=== PATIENT | female | born 1965 | race African-American/Black ===

== ENCOUNTER 2020-06-13 07:47 | Outpatient (CLI) | payer OTHER, SELFPAY ==
--- NOTE | 2020-06-13 07:51 | ECG_ITS ---
Measurements Intervals [place] Rate: 70 P: 57 MN: 151 QRS: -31 QRSD: 93 T: 221 QT: 433 QTc: 470 Interpretive Statements SINUS RHYTHM LEFT AXIS DEVIATION LEFT VENTRICULAR HYPERTROPHY AND ST-T CHANGE POOR R WAVE PROGRESSION, ANTERIOR LEADS ST-T WAVE ABNORMALITY IN ANTEROLATERAL LEADS- CONSIDER ISCHEMIA ABNORMAL ECG Electronically Signed On 06-13-2020 8:49:30 CDT by Juan Lopez D.O.
[2020-06-13 08:18] LABS: Anion Gap 7 mmol/L (8-16); Blood Urea Nitrogen 12 mg/dL (7-17); Carbon Dioxide 33 mmol/L (22-30); Chloride 91 mmol/L (98-107); Estimated Glomerular Filt Rate > 60; Glucose 395 mg/dL (65-105); Sodium 131 mmol/L (137-145)
== END 2020-06-13 07:48 | disposition home or self-care (01) ==
PROVIDERS: Anesthesiology; Visit Provider Obstetrics & Gynecology
DX: Z01.818 Encounter for other preprocedural examination (principal); E11.9 Type 2 diabetes mellitus without complications; I10 Essential (primary) hypertension; R94.31 Abnormal electrocardiogram [ECG] [EKG]
CPT/HCPCS: 36415; 80048; 93005

== ENCOUNTER 2020-06-18 00:36 | Outpatient (CLI) | payer OTHER, SELFPAY ==
[2020-06-18 19:34] LABS: SARS-CoV-2 RNA PCR Negative
== END 2020-06-18 00:37 | disposition home or self-care (01) ==
LOC: ANHCOVIDDT 00:36
PROVIDERS: Visit Provider Obstetrics & Gynecology
DX: Z01.812 Encounter for preprocedural laboratory examination (principal); Z11.59 Encounter for screening for other viral diseases
CPT/HCPCS: 87635; C9803; U0003

== ENCOUNTER 2020-06-20 02:19 | Day surgery (SDC) | payer OTHER, SELFPAY ==
[2020-06-08 09:18] VITALS: BMI 49.1
[2020-06-20] VITALS (8 sets, daily range): BP systolic 140–165; BP diastolic 81–103; PULSE 43–58; RESP 16–20; TEMP 36.1–36.8; O2SAT 91–100
--- NOTE | 2020-06-20 06:51 | WPDANESEPPF ---
Anes - Initial Pre Proc Eval Procedure: Operation Date: 06/20/20 07:30 Proposed Procedures p Hysteroscopy, Dilation and Curettage - Brice Cameron MD Date/Time: 06/20/20 06:51 Surgeon: Brice Cameron MD Pre Op Diagnosis: Postmenopausal Bleeding Patient Data Age: 54 Gender: F Height: 5 ft Weight: 114 kg Allergies Allergy/AdvReac Type Severity Reaction Status Date / Time lisinopril AdvReac Mild coughing Verified 06/08/20 09:11 Home Medications Medication Instructions Recorded Confirmed Type allopurinol 100 mg PO DAILY 06/08/20 06/08/20 History aripiprazole 15 mg PO DAILY 06/08/20 06/08/20 History aspirin [Aspir-81] 81 mg PO DAILY 06/08/20 06/08/20 History atenolol 100 mg PO DAILY 06/08/20 06/08/20 History bupropion HCl 150 mg PO DAILY 06/08/20 06/08/20 History famotidine 20 mg PO BID 06/08/20 06/08/20 History gabapentin 1,200 mg PO TID 06/08/20 06/08/20 History hydrochlorothiazide 25 mg PO DAILY 06/08/20 06/08/20 History losartan 100 mg PO DAILY 06/08/20 06/08/20 History metformin 500 mg PO DAILY 06/08/20 06/08/20 History methimazole 10 mg PO DAILY 06/08/20 06/08/20 History Patient hx anesthesia problems: none Family hx anesthesia problems: none [facility] Past Medical History Medical History Depression Diabetes Hypertension Morbid obesity MARIO (obstructive sleep apnea) Social History Social History Smoking status: Never smoker Spiritual care concerns: No Anes - Eval Final PreProcedure Day of Procedure 06/20/20 06:51 Patient weight: morbidly obese Heart: regular rate and rhythm Lungs: clear to auscultation Airway: Mallampati scale class III Neurological: alert and oriented Last oral intake: >/= 8 hours ASA classification: III Emergent: no Anesthetic plan: proceed Anesthesia type and monitoring: general GIVS and standard monitoring Informed Consent: The patient's anesthetic plan and its attendant risks and benefits were discussed with the patient/family/POA. Questions were solicited and answers provided to the satisfaction of the patient/family/POA.
[2020-06-20] MEDS: ACETAMINOPHEN 500 MG TABLET 1000 MG PO (07:00)
[2020-06-20] MEDS: LACTATED RINGERS 1,000 ML 30 ML IV CONT (07:02)
[2020-06-20 07:05] LABS: Glucose Point of Care 391 (65-105)
--- NOTE | 2020-06-20 07:05 | WPDHPUPDATE1 ---
History and Physical Update Update Date/Time: 06/20/20 07:05 History and Physical has been reviewed, including an updated exam of the patient. There are NO changes in the patient's condition. Risks, benefits, and alternatives have been discussed and questions answered. Patient agrees to proceed with procedure.
[2020-06-20 07:11] LABS: Sodium 131 mmol/L (137-145)
[2020-06-20] MEDS: INSULIN HUMAN REGULAR (*BKC) 100 UNITS/ML 12 UNITS SUB-Q (07:13)
--- NOTE | 2020-06-20 08:01 | SUR.OPER ---
700ml ns in, 600ml ns out. aware
[2020-06-20 08:16] LABS: Glucose Point of Care 369 (65-105)
--- NOTE | 2020-06-20 08:16 | PM.PROC ---
Procedure Note - Detailed Date of procedure: 06/20/20 Pre-op diagnosis: Postmenopausal Bleeding Post-op diagnosis: same Procedure performed: Hysteroscopy D&C Description of procedure: The patient was taken the operating room. She was prepped and draped in the dorsal lithotomy position after induction of mac anesthesia. A speculum was placed in the vagina. The cervix grasped with a tenaculum. The cervix was injected at 3 and 9:00 a.m. with 1% lidocaine. Cervix was dilated up to 1 cm. The hysteroscope was inserted the intrauterine cavity and the above findings were noted. A medium-size curette was then used to curettage all surfaces within the endometrial cavity. The endometrial curettings were collected on a Telfa. There were submitted to the pathology department. Hysteroscope was reinserted the intrauterine cavity to re-examine the endometrial surfaces. The hysteroscope was withdrawn. The tenaculum was removed. The speculum was removed. The patient tolerated the procedure well. She was taken recovery room stable condition. Sponge lap needle counts were correct x2. Anesthesia: MAC Surgeon: Brice Cameron MD Estimated blood loss (mL): 75 Drains: No Packing: No Pathology: yes Complications: No immediate complications Condition: stable Disposition: PACU Findings: There was some thickening of the endometrium. There was normal appearing vulva vagina and cervix.
[2020-06-20] MEDS: INSULIN HUMAN REGULAR (*BKC) 100 UNITS/ML 8 UNITS SUB-Q (08:34)
[2020-06-20 09:27] LABS: Glucose Point of Care 321 (65-105)
--- NOTE | 2020-06-20 10:19 | SUR.PHASEII ---
0940 PT DRESSED; WAITING FOR RIDE.
--- NOTE | 2020-06-20 10:19 | SUR.PHASEII ---
3110 DR. CERDA CALLED RE: BLOOD SUGAR [id number]; DR. CERDA AWARE, NO INTERVENTIONS ORDERED. PT INSTRUCTED TO FOLLOW-UP WITH PMD RE: DIABETES.
== END 2020-06-20 10:50 | disposition home or self-care (01) ==
PROVIDERS: Anesthesiology; Visit Provider Obstetrics & Gynecology
PROC: 0U5B8ZZ Destruction of Endometrium, Via Natural or Artificial Opening Endoscopic (ICD-10-PCS; CPT 58563; principal; 2020-06-20 07:30)
DX: N95.0 Postmenopausal bleeding (principal); N88.8 Other specified noninflammatory disorders of cervix uteri; E11.9 Type 2 diabetes mellitus without complications; I10 Essential (primary) hypertension; E05.00 Thyrotoxicosis with diffuse goiter without thyrotoxic crisis or storm; F32.9 Major depressive disorder, single episode, unspecified; G47.33 Obstructive sleep apnea (adult) (pediatric); Z79.84 Long term (current) use of oral hypoglycemic drugs; Z79.899 Other long term (current) drug therapy
CPT/HCPCS: 58558; 36415; 84295; 88305; A9270; J1815; J2250; J2405; J2704; J3010; J7030; J7120

== ENCOUNTER 2021-11-16 10:17 | Outpatient (CLI) | payer OTHER, SELFPAY ==
--- NOTE | ~2021-11-16 | MM_ITS ---
EXAMINATION: MM screening [facility] BI w tierra HISTORY: Screening mammogram TECHNIQUE: Craniocaudal and mediolateral oblique 3-D tomosynthesis images were obtained and synthetic 2-D images were generated. CAD analysis was submitted and interpreted. COMPARISON: 10/17/2019 BREAST PARENCHYMAL COMPOSITION: There are scattered areas of fibroglandular density. FINDINGS: There is no evidence of suspicious mass, calcification, or architectural distortion to sugg est malignancy in either breast. There has been no suspicious interval change. IMPRESSION: 1. No mammographic evidence of malignancy. 2. Recommend routine screening mammography in one year. BI-RADS Category 1: Negative Reviewed, dictated and finalized at location A. PROCESSOR
== END 2021-11-16 10:18 | disposition home or self-care (01) ==
LOC: ANHIMG 10:21
PROVIDERS: Visit Provider Obstetrics & Gynecology
DX: Z12.31 Encounter for screening mammogram for malignant neoplasm of breast (principal)
CPT/HCPCS: 77063; 77067

== ENCOUNTER 2021-11-18 09:09 | Outpatient (CLI) | payer OTHER, SELFPAY ==
[2021-11-18 10:21] LABS: Anion Gap 11 mmol/L (8-16); Blood Urea Nitrogen 12 mg/dL (7-17); Calcium 9.5 mg/dL (8.4-10.2); Carbon Dioxide 28 mmol/L (22-30); Chloride 96 mmol/L (98-107); Estimated Glomerular Filt Rate > 60; Glucose 174 mg/dL (65-110); Potassium 4.1 mmol/L (3.4-5.0); Sodium 135 mmol/L (137-145)
== END 2021-11-18 09:10 | disposition home or self-care (01) ==
LOC: ANHSURGERY 09:13
PROVIDERS: Anesthesiology; PCP Internal Medicine; Visit Provider Obstetrics & Gynecology
DX: E11.9 Type 2 diabetes mellitus without complications (principal); Z79.899 Other long term (current) drug therapy
CPT/HCPCS: 36415; 80048

== ENCOUNTER 2021-11-19 01:50 | Day surgery (SDC) | payer OTHER, SELFPAY ==
[2021-11-15 14:02] VITALS: BMI 47.0
--- NOTE | 2021-11-15 14:11 | PC.NURSE ---
Report to the Outpatient Waiting Room, entrance under the green pavilion located off [facility], at time 11:00 on date 11/19/21. OR Time: 1:00. - You will be asked a series of questions to screen for COVID 19 for your protection. - A mask is required within the hospital. - No visitors are allowed at this time. Preoperative COVID Testing Requirements: No COVID Test needed if: (proof is required; if not received patient will have Rapid Test prior to entry) - Patient has received COVID Vaccine at least 14 days prior to procedure date or - Patient has positive COVID test result within last 90 days of surgery date. COVID Test needed if above criteria is not met Patients may have clear liquids (water, carbonated beverages, clear teas, apple juice) until 3 hours prior to surgery (10:00) with a maximum of 20 ounces. - No food from midnight until time of surgery Take the following medications with a SIP of water the morning of surgery: INHALER, ARIPIPRAZOLE, ATENOLOL, DULOXETINE, GABAPENTIN, METHIMAZOLE, 1/2 AM INSULIN DOSE Medications to discontinue per physician: VITAMINS/SUPPLEMENTS Date to take last dose: 11/15/[address] MARES Please no make-up, nail nicaraguan, hairspray, perfume, deodorant, or body powder the day of surgery. No jewelry (including any body piercings) or valuables the day of surgery, leave them at home. Please take a shower or bath the night before, or the morning of, surgery with an antibacterial soap. Wear comfortable, loose fitting clothing. - Jewelry must be removed prior to entering the operating room. Rings and piercings that are not removed may be cut off. - The hospital will not accept responsibility for valuables. - Please leave all valuables, including medications, at home the day of surgery. If you are going home after surgery, a licensed local owner operator truck driver must drive you home. - NO public transportation without another adult. - We recommend that an adult stay with you for 24 hours following discharge. - We also recommend that you do not drive, make important decision, drink alcoholic beverages, or take any drugs that were not prescribed by your health care provider for at least 24 hours after your discharge time. Follow any additional instructions given to you from your surgeon. Telephone instructions given to TRENA FALCON and asked if any additional questions and then verbalized understanding. Patient advised to call surgeon office or pre surgery nurse liaison [phone] if any additional questions.
--- NOTE | 2021-11-18 12:47 | WPDANESEPPF ---
Anes - Initial Pre Proc Eval Procedure: Operation Date: 11/19/21 13:00 Proposed Procedures p Hysteroscopy Dilation and Curettage Endometrial Ablation with Sanna - Brice Cameron MD Date/Time: 11/18/21 12:47 Surgeon: Brice Cameron MD Pre Op Diagnosis: excessive frequent menstruation Patient Data Age: 56 Gender: F Height: 1.57 m Weight: 116.57 kg Allergies Allergy/AdvReac Type Severity Reaction Status Date / Time terbinafine [From Lamisil] Allergy Severe Itching Verified 11/15/21 13:56 lisinopril AdvReac Mild coughing Verified 11/15/21 13:56 Home Medications Medication Instructions Recorded Confirmed Type aripiprazole 15 mg PO DAILY 06/08/20 11/15/21 History aspirin [Aspir-81] 81 mg PO DAILY 06/08/20 11/15/21 History atenolol 100 mg PO DAILY 06/08/20 11/15/21 History famotidine 20 mg PO BID 06/08/20 11/15/21 History gabapentin 1,200 mg PO TID 06/08/20 11/15/21 History hydrochlorothiazide 25 mg PO DAILY 06/08/20 11/15/21 History losartan 100 mg PO DAILY 06/08/20 11/15/21 History metformin 500 mg PO DAILY 06/08/20 11/15/21 History methimazole 10 mg PO DAILY 06/08/20 11/15/21 History albuterol sulfate 1 inh INHALATION Q6H PRN 11/15/21 11/15/21 History atorvastatin 20 mg PO HS 11/15/21 11/15/21 History duloxetine 60 mg PO DAILY 11/15/21 11/15/21 History insulin lispro [Humalog KwikPen 8 unit SUBCUT TIDWM 11/15/21 11/15/21 History Insulin] liraglutide [Victoza 3-Joel] 1.8 mg SUBCUT DAILY 11/15/21 11/15/21 History multivitamin 1 tablet PO DAILY 11/15/21 11/15/21 History omeprazole 40 mg PO DAILY 11/15/21 11/15/21 History ondansetron 4 mg PO DAILY 11/15/21 11/15/21 History phentermine 37.5 mg PO DAILY 11/15/21 11/15/21 History potassium chloride 10 meq PO DAILY 11/15/21 11/15/21 History progesterone micronized 200 mg PO DAILY 11/15/21 11/15/21 History spironolactone 25 mg PO DAILY 11/15/21 11/15/21 History Patient hx anesthesia problems: none Family hx anesthesia problems: none Results Review: All pre-operative results and documents have been reviewed as part of the pre-operative evaluation. [facility] Past Medical History Medical History (System 08/31/20 @ 15:46 by Belkys Verma) Depression Diabetes Hypertension Morbid obesity MARIO (obstructive sleep apnea) Social History Social History (System 08/31/20 @ 15:46 by Belkys Verma) Smoking status: Never smoker Alcohol intake: never Substance use: never Substance use type: does not use Living arrangements: with family Additional living arrangements comments: SON Spiritual care concerns: No Anes - Eval Final PreProcedure Day of Procedure 11/18/21 12:47 Patient weight: morbidly obese Heart: regular rate and rhythm Lungs: clear to auscultation and normal air movement Airway: Mallampati scale class II Neurological: alert and oriented Last oral intake: >/= 8 hours ASA classification: III Emergent: no Anesthetic plan: proceed Anesthesia type and monitoring: general LMA Results Review: All pre-operative results and documents have been reviewed as part of the pre-operative evaluation. Informed Consent: The patient's anesthetic plan and its attendant risks and benefits were discussed with the patient/family/POA. Questions were solicited and answers provided to the satisfaction of the patient/family/POA.
[2021-11-19] VITALS (8 sets, daily range): BP systolic 83–130; BP diastolic 50–84; PULSE 63–73; RESP 14–20; TEMP 36.2–36.6; O2SAT 97–100; BMI 46.4
[2021-11-19] MEDS: ACETAMINOPHEN 500 MG TABLET 1000 MG PO (11:04)
[2021-11-19 11:20] LABS: Glucose Point of Care 141 mg/dl (65-105)
[2021-11-19] MEDS: LACTATED RINGERS 1,000 ML 30 ML IV CONT ×2 (11:32→15:11)
--- NOTE | 2021-11-19 13:16 | WPDHPUPDATE1 ---
History and Physical Update Update Date/Time: 11/19/21 13:16 History and Physical has been reviewed, including an updated exam of the patient. There are NO changes in the patient's condition. Risks, benefits, and alternatives have been discussed and questions answered. Patient agrees to proceed with procedure.
--- NOTE | 2021-11-19 13:41 | W.PM.PROC2 ---
Procedure Note - Detailed Date of Procedure 11/19/21 Pre-op Diagnosis excessive frequent menstruation Post-op Diagnosis same Procedure Performed endometrial ablation with hysteroscopy d&c Surgeon Brice Cameron MD Anesthesia MAC Indications Severe menorrhagia Findings Normal vulva vagina and cervix. Normal endometrium. Description of Procedure The patient was taken to the operating room. She was prepped and draped in the dorsal lithotomy position after induction of mac anesthesia. A speculum was placed in the vagina. Cervix grasped with a tenaculum. The cervix was dilated to about 1 cm. The hysteroscope was inserted. The above findings were noted. Endometrial curettage was performed with a medium-size curette. All surfaces of the endometrium were affected by the curettage. The specimens were collected and sent to pathology. Measurements were taken of the uterus and cervix. The uterine length was then entered into the hand piece of the Sanna device. The device was inserted into the intrauterine cavity. The array of the device was expanded. The balloon cuff was inflated. A good seal was achieved. The energy and safety cycles were initiated and completed. The array was collapsed and the instrument was withdrawn after deflating the balloon cuff. Hysteroscope was reinserted. Above findings were noted. The hysteroscope was removed. The patient tolerated the procedure well. The speculum and tenaculum were removed. She was taken to recovery in stable condition. Sponge lap and needle counts were correct x2. Estimated Blood Loss 15 Pathology yes Complications No immediate complications Condition stable Disposition same day
--- NOTE | 2021-11-19 14:31 | SUR.OPER ---
600ml ns in and 400ml ns out. aware
[2021-11-19 14:56] LABS: Glucose Point of Care 114 mg/dl (65-105)
[2021-11-19] MEDS: oxyCODONE HCL (*CRX) 5 MG TAB IR PO (16:05)
== END 2021-11-19 17:10 | disposition home or self-care (01) ==
PROVIDERS: PCP Internal Medicine; Visit Provider Obstetrics & Gynecology
PROC: 0U5B8ZZ Destruction of Endometrium, Via Natural or Artificial Opening Endoscopic (ICD-10-PCS; CPT 58563; principal; 2021-11-19 13:00)
DX: N92.0 Excessive and frequent menstruation with regular cycle (principal); I10 Essential (primary) hypertension; E11.9 Type 2 diabetes mellitus without complications; G47.33 Obstructive sleep apnea (adult) (pediatric); F32.9 Major depressive disorder, single episode, unspecified; E66.01 Morbid (severe) obesity due to excess calories; Z68.42 Body mass index [BMI] 45.0-49.9, adult; Z79.82 Long term (current) use of aspirin; Z79.84 Long term (current) use of oral hypoglycemic drugs; Z79.51 Long term (current) use of inhaled steroids; Z79.4 Long term (current) use of insulin
CPT/HCPCS: 58563; 82948; 88305; A9270; J1200; J2250; J2704; J3010; J7030; J7120

== ENCOUNTER 2022-10-22 07:58 | Outpatient (CLI) | payer OTHER, SELFPAY ==
--- NOTE | 2022-10-22 08:18 | ECG_ITS ---
Measurements Intervals [place] Rate: 77 P: 70 PA: 168 QRS: -26 QRSD: 100 T: 14 QT: 389 QTc: 441 Interpretive Statements SINUS RHYTHM BORDERLINE LEFT AXIS DEVIATION [QRS AXIS < -20] VOLTAGE CRITERIA FOR LVH [MEETS CRITERIA IN ONE OF: R(aVL), S(V1), R(V5), R(V5/V6)+S(V1)] NONSPECIFIC T-WAVE ABNORMALITY COMPARED TO ECG 06/13/2020 08:21:16 NO SIGNIFICANT CHANGES Electronically Signed On 10-22-2022 13:22:01 PACKAGE SORTER by Lopez Pulido M.D.
[2022-10-22 09:25] LABS: Alanine Aminotransferase 26 U/L (6-35); Albumin Level 4.2 g/dL (3.5-5.1); Alkaline Phosphatase 112 U/L (38-126); Anion Gap 10 mmol/L (8-16); Aspartate Amino Transferase 25 U/L (14-36); Bilirubin,Total 0.4 mg/dL (0.2-1.3); Blood Urea Nitrogen 16 mg/dL (7-17); Calcium 8.8 mg/dL (8.4-10.2); Carbon Dioxide 26 mmol/L (22-30); Chloride 97 mmol/L (98-107); Estimated Glomerular Filt Rate > 60; Glucose 182 mg/dL (65-110); Potassium 3.8 mmol/L (3.4-5.0); Sodium 133 mmol/L (137-145)
== END 2022-10-22 07:59 | disposition home or self-care (01) ==
PROVIDERS: PCP Internal Medicine; Visit Provider Obstetrics & Gynecology
DX: N92.0 Excessive and frequent menstruation with regular cycle (principal); E11.9 Type 2 diabetes mellitus without complications; I10 Essential (primary) hypertension; R94.31 Abnormal electrocardiogram [ECG] [EKG]
CPT/HCPCS: 36415; 80053; 86850; 86900; 86901; 93005

== ENCOUNTER 2022-10-29 00:58 | Day surgery (SDC) | payer OTHER, SELFPAY ==
[2022-10-16 12:02] VITALS: BMI 49.5
--- NOTE | 2022-10-16 12:07 | PC.NURSE ---
Report to the Outpatient Waiting Room, entrance under the green pavilion located off [facility], at time 8:30 on date 10/29/22. Planned Procedure Time: 10:30. Time changes happen often and if your time is changed the preop area will call you the afternoon before. - You and your visitor will be asked to self-screen and do not enter if you have any COVID symptoms. - Only one visitor is requested with a max of two and NO children visitors are allowed at this time. - The patient visitor may be requested to leave or wait in car when not with patient due to distancing restrictions. - A mask is REQUIRED within the hospital. Patients may have clear liquids (water, carbonated beverages, clear teas, apple juice) until 3 hours prior to surgery with a maximum of 20 ounces. - No food from midnight until time of surgery Take the following medications with a SIP of water the morning of surgery: INHALER IF NEEDED, ABILIFY, ATENOLOL, DULOXETINE, GABAPENTIN, METHIMAZOLE Medications to discontinue per physician: VITAMINS/SUPPLEMENTS Date to take last dose: 10/25/[address] MARES'S INSTRUCTIONS REGARDING ASPIRIN Please no make-up, nail thai, hairspray, perfume, deodorant, or body powder the day of surgery. No jewelry (including any body piercings) or valuables the day of surgery, leave them at home. Please take a shower or bath the night before, or the morning of, surgery with an antibacterial soap. Wear comfortable, loose fitting clothing. - Jewelry must be removed prior to entering the operating room. Rings and piercings that are not removed may be cut off. - The hospital will not accept responsibility for valuables. - Please leave all valuables, including medications, at home the day of surgery. If you are going home after surgery, a licensed driver/guide must drive you home. - NO public transportation without another adult if you receive anesthesia. - We recommend that an adult stay with you for 24 hours following discharge. - We also recommend that you do not drive, make important decision, drink alcoholic beverages, or take any drugs that were not prescribed by your health care provider for at least 24 hours after your discharge time. Follow any additional instructions given to you from your surgeon. If you or anyone in your household have experienced Covid symptoms in the past week, please notify your surgeon or the nurse liaison at the phone number below for possible testing. Telephone instructions given to KAMLA - TRENA FALCON and asked if any additional questions and then verbalized understanding. Patient advised to call surgeon office or pre surgery nurse liaison [phone] if any additional questions.
[2022-10-29] VITALS (12 sets, daily range): BP systolic 127–145; BP diastolic 73–98; PULSE 75–100; RESP 16–20; TEMP 36.6–36.9; O2SAT 97–100
--- NOTE | 2022-10-29 07:45 | WPDANESEPPF ---
Anes - Initial Pre Proc Eval Procedure: Operation Date: 10/29/22 10:30 Proposed Procedures p Robotic Assisted Hysterectomy with Bilateral Salpingo-oophorectomy - Brice Cameron MD Date/Time: 10/29/22 07:45 Surgeon: Brice Cameron MD Pre Op Diagnosis: menorrhagia Patient Data Age: 57 Gender: F Height: 1.52 m Weight: 115 kg Allergies Allergy/AdvReac Type Severity Reaction Status Date / Time terbinafine [From Lamisil] Allergy Severe Itching Verified 10/29/22 08:09 lisinopril AdvReac Mild coughing Verified 10/29/22 08:09 Home Medications Medication Instructions Recorded Confirmed Type aripiprazole 15 mg tablet 15 mg PO DAILY 06/08/20 10/29/22 History aspirin 81 mg tablet,delayed 81 mg PO DAILY 06/08/20 10/29/22 History release (Aspir-) atenolol 100 mg tablet 100 mg PO DAILY 06/08/20 10/29/22 History famotidine 20 mg tablet 20 mg PO BID 06/08/20 10/29/22 History gabapentin 300 mg capsule 1,200 mg PO TID 06/08/20 10/29/22 History hydrochlorothiazide 25 mg tablet 25 mg PO DAILY 06/08/20 10/29/22 History losartan 100 mg tablet 100 mg PO DAILY 06/08/20 10/29/22 History metformin 500 mg tablet 500 mg PO DAILY 06/08/20 10/29/22 History methimazole 10 mg tablet 10 mg PO DAILY 06/08/20 10/29/22 History albuterol sulfate 90 mcg/actuation 1 inh inhalation Q6H PRN 11/15/21 10/29/22 History aerosol inhaler Bronchospasm atorvastatin 20 mg tablet 20 mg PO HS 11/15/21 10/29/22 History duloxetine 60 mg capsule,delayed 60 mg PO DAILY 11/15/21 10/29/22 History release insulin lispro 100 unit/mL 8 unit subcut TIDWM 11/15/21 10/29/22 History subcutaneous pen (Humalog KwikPen (U-100) Insulin) multivitamin 1 tablet PO DAILY 11/15/21 10/29/22 History omeprazole 40 mg capsule,delayed 40 mg PO DAILY 11/15/21 10/29/22 History release ondansetron 4 mg disintegrating 4 mg PO DAILY 11/15/21 10/29/22 History tablet spironolactone 25 mg tablet 25 mg PO DAILY 11/15/21 10/29/22 History Patient hx anesthesia problems: none Family hx anesthesia problems: none Results Review: All pre-operative results and documents have been reviewed as part of the pre-operative evaluation. [facility] Past Medical History Medical History (Updated 10/29/22 @ 07:45 by Ramana Cho DO) Depression Diabetes GERD (gastroesophageal reflux disease) Hyperlipidemia Hypertension Hyperthyroidism Morbid obesity MARIO (obstructive sleep apnea) CPAP Social History Social History (System 04/22/22 @ 14:02 by Kylie Gar) Smoking status: Never smoker Alcohol intake: never Substance use: never Substance use type: does not use Living arrangements: with family Additional living arrangements comments: SON Gender identity (if verbalized by the patient): Female Sexual Orientation (if Verbalized by the Patient): Straight or Heterosexual Spiritual care concerns: No Anes - Eval Final PreProcedure Day of Procedure 10/29/22 07:45 Patient weight: morbidly obese Heart: regular rate and rhythm Lungs: clear to auscultation Airway: Mallampati scale class III Neurological: alert and oriented Last oral intake: >/= 8 hours ASA classification: III Emergent: no Anesthetic plan: proceed Anesthesia type and monitoring: general ETT and standard monitoring Results Review: All pre-operative results and documents have been reviewed as part of the pre-operative evaluation. Informed Consent: The patient's anesthetic plan and its attendant risks and benefits were discussed with the patient/family/POA. Questions were solicited and answers provided to the satisfaction of the patient/family/POA.
[2022-10-29] MEDS: ACETAMINOPHEN 500 MG TABLET 1000 MG PO (08:27)
[2022-10-29] MEDS: LACTATED RINGERS 1,000 ML 30 ML IV CONT ×2 (08:36→15:10)
[2022-10-29 08:39] LABS: Glucose Point of Care 123 mg/dl (65-105)
--- NOTE | 2022-10-29 09:06 | WPDHPUPDATE1 ---
History and Physical Update Update Date/Time: 10/29/22 09:06 This surgery will be preformed with Robotic Assistance - not n the laparoscopic approach mentioned in the H&P History and Physical has been reviewed, including an updated exam of the patient. There are NO changes in the patient's condition. Risks, benefits, and alternatives have been discussed and questions answered. Patient agrees to proceed with procedure.
[2022-10-29] MEDS: KETOROLAC 15 MG/ML VIAL (*BKC) IV PUSH (09:12)
[2022-10-29] MEDS: ceFAZolin 2 GM/D5W 50 ML 2 GM/50 ML BAG IVPB (09:44)
[2022-10-29 15:18] LABS: Glucose Point of Care 159 mg/dl (65-105)
[2022-10-29] MEDS: fentaNYL CITRATE INJ (*CRX) 100 MCG/2 ML VIAL 25 MCG IV PUSH ×3 (15:52→16:19)
--- NOTE | 2022-10-29 17:04 | PC.NURSE ---
Pt arrived on unit via bed and taken to room 279. Pt accompanied by family members. PT oriented to room and surrounding area. PT introductions made and plan of care discussed per post op urogynecology physician surgery , pain management and daily care activities. PT and family both recipients of such instructions and no barriers to learning identified at this time. Pt received such instructions via one to one discussion and demonstrations this shift. PT and family both verbalized understanding of such care.
[2022-10-29] MEDS: DEXTROSE 5%/0.45% SOD CHL 1,000 ML 125 ML IV CONT (17:32)
[2022-10-29] MEDS: KETOROLAC 30 MG/ML VIAL (*BKC) IV PUSH (17:34)
[2022-10-29] MEDS: FAMOTIDINE 20 MG TABLET PO (17:35)
[2022-10-29] MEDS: PANTOPRAZOLE 40 MG TABLET PO (17:35)
--- NOTE | 2022-10-29 17:53 | W.PM.PROC2 ---
Procedure Note - Detailed Date of Procedure 10/29/22 Pre-op Diagnosis menorrhagia Post-op Diagnosis Same Procedure Performed Robot assisted Total hysterectomy with bilateral Salpingo-oophorectomy., adhesiolysis Surgeon Brice Cameron MD Anesthesia General Indications pelvic pain Findings normal-appearing tubes and ovaries. Normal appearing vulva vagina and cervix. Very large fibroid uterus, adhesions between the omentum and the anterior abdominal wall there were extensive. Description of Procedure This patient was taken to the operating room. She was prepped and draped in the dorsal lithotomy position after induction of general anesthesia. The uterine manipulator and Libertad cup were placed. This was done with a speculum and tenaculum. The speculum was placed. The cervix was grasped with a tenaculum. The stay sutures were placed at 3 and 9:00 a.m.. The stay sutures of 0 Vicryl were tied to the appropriately Size scope after it was slipped around the cervix.. The tip of the PAMELA manipulator was placed in the intrauterine cavity. The cup was slid into place around the cervix and into the fornices. It was locked into place. The sutures were then wrapped around the handle and tied under tension. A 8 mm skin incision was made in the left upper quadrant the abdomen. a 5 mm Visiport trocar was inserted into abdominal cavity and pneumoperitoneum was achieved. A 8 mm supraumbilical incision was made and a 8 mm trocar was inserted into the intrauterine cavity under direct visualization of the scope. an 8 mm incision was made in the right upper quadrant of the abdomen and an 8 mm robotic trocar was placed the inter uterine cavity under direct visualization the scope. An 11 mm trocar was inserted in the right upper quadrant of the abdomen rectal is a cystoscope after an incision was made there as well. The robot was docked. Electronic Orientation of the robot was performed. 1 hour of adhesiolysis was performed using cautery, adhesion between the anterior abdominal wall and the omentum were . Bilateral ureteral lysis was performed. This was done from the pelvic brim down to the uterine artery. This was done with careful dissection using sharp and blunt dissection. The fallopian tubes and ovaries were removed bilaterally. The infundibulopelvic ligament was isolated after identification of the ureter. It was cauterized and transected with the vessel sealer fashion. The mesosalpinx on lateral of the ovary was cauterized transected the vessel sealer. In a stepwise fashion along the lateral aspects of the uterus the round ligament and broad ligaments were cauterized transected down to the level of the uterine arteries. A bladder flap was created in the bladder was moved distally to the end of the cervix and over the Libertad cup. The bilateral uterine arteries were cauterized and transected. Colpotomy was then performed. In a circumferential fashion the vagina was transected using unipolar cautery. The incision was made down on the Libertad cup. uterus was then cut into multiple pieces using cautery. This was lengthy. This was a large uterus and had to be cut multiple times. The uterus and cervix were taken out through the vagina. A pneumo occluder was placed in the vagina. The vaginal cuff was closed with a 0 V lock suture in a running fashion. The pelvis was irrigated with copious amounts antibiotic irrigation. The ureters were again examined and found to be intact and flowing freely under the uterine arteries into the bladder. The bladder was intact. It was examined directly. The vagina was irrigated with Betadine solution after removal of the Pneumo occluder. the trocars were removed after the robot was undocked. The skin was closed with subacute or Dermabond. The patient was taken to recovery room. She was stable condition. Sponge lap and needle counts were correct x2. Estimated Blood Loss -25.0 Urine Output -125.0 Drains
[2022-10-29] MEDS: HYDROcodone/acetaminophen (*CRX) 10-325 MG TABLET 1 TAB PO ×2 (19:05→23:40)
[2022-10-29] MEDS: GABAPENTIN 400 MG CAPSULE 1200 MG PO (19:05)
[2022-10-29] MEDS: ATORVASTATIN 20 MG TABLET PO (21:13)
[2022-10-29] MEDS: IBUPROFEN 600 MG TABLET PO (23:40)
[2022-10-30 04:55] VITALS: BP 118/80; PULSE 87; RESP 16; TEMP 36.7; O2SAT 99
[2022-10-30 07:50] VITALS: BP 111/60; PULSE 78; RESP 16; TEMP 37; O2SAT 100
--- NOTE | 2022-10-30 08:14 | PM.GYNPNOP ---
SERVICE OR WORK DISPATCHER - A/P Postoperative Procedures: Procedures Operation Date: 10/29/22 10:30 Actual Procedure Side Surgeon p Robotic Assisted Hysterectomy with Bilateral Salpingo-oophorectomy Bilateral Brice Cameron MD Postoperative day: 1 Postoperative status: doing well Postoperative plan: see orders Time Spent With Patient Time: Total time spent is greater than 50% in coordination of care (as documented) at patient's floor/unit and/or counseling patient: Time with patient: less than 15 minutes SERVICE OR WORK DISPATCHER- PN:Subj Post-Op Subjective Date/time seen: 10/30/22 08:14 Subjective: patient reports feeling better, patient has no complaints and pain is well controlled Exam Const: General: healthy appearing, comfortable and no acute distress Resp: Auscultation: clear to auscultation bilaterally, no rales, no rhonchi and no wheezes Cardio: Rate: regular rate Heart sounds: no click, no murmurs and no rubs GI: Inspection: non-distended Auscultation: normal bowel sounds Extrem: General: normal to inspection, no pedal edema and no calf tenderness SERVICE OR WORK DISPATCHER - PN: Obj Data Vital Signs Vital Signs: Vital Signs - 24 hr 10/29/22 08:39 10/29/22 15:10 10/29/22 15:25 Temperature 98.0 F 98.4 F Pulse Rate 75 80 85 Respiratory Rate 16 16 20 Blood Pressure 144/85 H 133/87 145/98 H Pulse Oximetry 100 100 100 Oxygen Delivery Room Air Simple Face Mask Simple Face Mask Oxygen Flow Rate 8 8 10/29/22 15:40 10/29/22 15:55 10/29/22 16:10 Temperature Pulse Rate 88 85 83 Respiratory Rate 20 20 20 Blood Pressure 143/82 H 135/85 137/83 Pulse Oximetry 100 97 98 Oxygen Delivery Simple Face Mask Nasal Cannula Nasal Cannula Oxygen Flow Rate 8 2 2 10/29/22 16:25 10/29/22 16:40 10/29/22 16:51 Temperature Pulse Rate 80 86 87 Respiratory Rate 20 20 18 Blood Pressure 134/88 132/84 134/83 Pulse Oximetry 98 100 100 Oxygen Delivery Nasal Cannula Nasal Cannula Nasal Cannula Oxygen Flow Rate 2 2 2 10/29/22 17:10 10/29/22 17:10 10/29/22 19:05 Temperature 98.3 F 97.9 F Pulse Rate 80 100 82 Respiratory Rate 18 18 18 Blood Pressure 127/83 134/85 Pulse Oximetry 100 100 100 Oxygen Delivery Nasal Cannula Oxygen Flow Rate 2 10/29/22 19:05 10/29/22 23:40 10/29/22 23:40 Temperature 98.1 F Pulse Rate 97 Respiratory Rate 16 Blood Pressure 133/73 Pulse Oximetry 100 99 Oxygen Delivery Nasal Cannula Room Air Oxygen Flow Rate 2 10/30/22 04:55 10/30/22 04:55 Temperature 98.1 F Pulse Rate 87 Respiratory Rate 16 Blood Pressure 118/80 Pulse Oximetry 99 Oxygen Delivery Room Air Oxygen Flow Rate Intake/Output Intake/Output: Intake & Output 10/27/22 10/28/22 10/29/22 10/30/22 23:59 23:59 23:59 23:59 Intake Total 825 1000 Output Total 910 Balance -85 1000 Meds/Results Medications: Active Medications Generic Name Dose Route Start Last Admin Trade Name Freq PRN Reason Stop Dose Admin Hydrocodone Bitart/Acetaminophen 1 tab 10/29/22 16:53 Hydrocodone/Acetaminophen (*Crx) 5-325 Mg Tablet PO Q3H PRN Pain Rated 5 or Less Hydrocodone Bitart/Acetaminophen 1 tab 10/29/22 16:53 10/29/22 23:40 Hydrocodone/Acetaminophen (*Crx) 10-325 Mg Tablet PO 1 tab Q3H PRN Administration Pain Rated 6 or Greater Albuterol 1 puff 10/29/22 16:53 Albuterol Sulfate (*Sp) Aerosol 1 Puff INHALATION Q6H PRN Bronchospasm Aripiprazole 10 mg 10/30/22 09:00 Aripiprazole 10 Mg Tablet PO DAILY BRADLEY Aripiprazole 5 mg 10/30/22 09:00 Aripiprazole 5 Mg Tablet PO DAILY BRADLEY Aspirin 81 mg 10/30/22 09:00 Aspirin 81 Mg Enteric Tablet PO DAILY BRADLEY Atenolol 100 mg 10/30/22 09:00 Atenolol 50 Mg Tablet PO DAILY BRADLEY Atorvastatin Calcium 20 mg 10/29/22 21:00 10/29/22 21:13 Atorvastatin 20 Mg Tablet PO 20 mg HS BRADLEY Administration Duloxetine HCl 60 mg 10/30/22 09:00 Duloxetine Hcl 60 Mg Capsule. PO DAILY [facility] Enoxapar
--- NOTE | 2022-10-30 09:00 | PC.NURSE ---
PT introductions made and plan of care discussed per post op preform plate maker surgery, pain management, daily care activities and pending discharge to home. PT and and son both recipients of such instructions and no barriers to learning identified at this time. PT received such instructions per one to one discussion, demonstrations this shift. PT verbalized understanding of such care.
[2022-10-30] MEDS: IBUPROFEN 600 MG TABLET PO (09:21)
[2022-10-30] MEDS: HYDROcodone/acetaminophen (*CRX) 5-325 MG TABLET 1 TAB PO (09:22)
[2022-10-30 09:30] VITALS: PULSE 78; RESP 16; O2SAT 100
[2022-10-30] MEDS: metFORMIN HCL 500 MG TABLET PO (09:41)
[2022-10-30] MEDS: ENOXAPARIN 40 MG/0.4 ML SYRINGE SUB-Q (09:41)
[2022-10-30] MEDS: LOSARTAN POTASSIUM 100 MG TABLET PO (09:42)
[2022-10-30] MEDS: FAMOTIDINE 20 MG TABLET PO (09:42)
[2022-10-30] MEDS: PANTOPRAZOLE 40 MG TABLET PO (09:42)
[2022-10-30] MEDS: hydroCHLOROthiazide 25 MG TABLET PO (09:42)
[2022-10-30] MEDS: GABAPENTIN 400 MG CAPSULE 1200 MG PO (09:43)
[2022-10-30 09:44] VITALS: PULSE 86
[2022-10-30] MEDS: methiMAzole 10 MG TAB PO (09:44)
[2022-10-30] MEDS: atenoloL 50 MG TABLET 100 MG PO (09:44)
[2022-10-30] MEDS: ASPIRIN 81 MG ENTERIC TABLET PO (09:45)
[2022-10-30] MEDS: DULoxetine HCL 60 MG CAPSULE.DR PO (09:48)
[2022-10-30] MEDS: MULTIVITAMINS THERAPEUTIC TAB (*BKC) 1 TABLET PO (09:48)
[2022-10-30] MEDS: SPIRONOLACTONE 25 MG TABLET PO (09:48)
--- NOTE | 2022-10-30 09:53 | WPDANESPN ---
Anes - Prog Note Post-Op Date/Time: 10/30/22 09:53 Cardiovascular status: normal Respiratory status: normal Airway patency: baseline Mental status: baseline Post-Op hydration status: normal Vital Signs: Last Vital Signs Temp 37.0 C 10/30/22 07:50 Pulse 86 10/30/22 09:44 Resp 16 10/30/22 07:50 BP 111/60 10/30/22 07:50 Pulse Ox 100 10/30/22 07:50 O2 Del Method Room Air 10/30/22 04:55 O2 Flow Rate 2 10/29/22 19:05 Pain Score (VAS): 01/02 I/O: Intake & Output 10/29/22 10/30/22 10/30/22 23:59 07:59 15:59 Intake Total 775 1000 Output Total 910 Balance -135 1000 10/29/22 15:15 POC Capillary Glucose 159 H Post-procedural complaints: none Patient Feedback: Patient satisfied with anesthetic care.
--- NOTE | 2022-10-30 10:25 | PC.NURSE ---
Reviewed discharge instructions thoroughly. PT verbalized understanding. PT discharged to home ambulatory accompanied by her son and taken to waiting car. follow up appts confirmed
--- NOTE | 2022-11-12 20:06 | PM.DS ---
DS: Admitting Diagnosis Discharge Date 10/30/22 Admitting Diagnosis vaginal hemorrhage DS: Summary Hospital Course Hospital Course: this patient is a 57-year-old female who was syncopal at home and has longstanding vaginal bleeding. She was admitted for observation and transfused blood. Time Spent with Patient Time attestation: Total time spent providing and/or coordinating discharge services: DS: Data Data Completed and Pending Completed studies during hospitalization: Pending at discharge 10/29/22 12:29 Surgical [PTH] Routine Discharge Plan Discharge Patient Disposition: Home, Self-Care Patient Instructions: Pain Management (DC), Laparoscopic Hysterectomy (DC) Stand Alone Forms: General Discharge Instructions Discharge Medications: New hydrocodone-acetaminophen 5-325 mg tablet 1 tablet PO Q4H PRN (Reason: pain) Qty: 25 0RF Continued metformin 500 mg tablet 500 mg PO DAILY atenolol 100 mg tablet 100 mg PO DAILY aspirin [Aspir-81] 81 mg Tablet,Delayed Release (Dr/Ec) 81 mg PO DAILY famotidine 20 mg Tablet 20 mg PO BID gabapentin 300 mg capsule 1,200 mg PO TID hydrochlorothiazide 25 mg tablet 25 mg PO DAILY methimazole 10 mg tablet 10 mg PO DAILY losartan 100 mg tablet 100 mg PO DAILY aripiprazole 15 mg tablet 15 mg PO DAILY atorvastatin 20 mg tablet 20 mg PO HS omeprazole 40 mg capsule,delayed release(DR/EC) 40 mg PO DAILY spironolactone 25 mg tablet 25 mg PO DAILY albuterol sulfate 90 mcg/actuation HFA aerosol inhaler 1 inh INHALATION Q6H PRN (Reason: Bronchospasm) ondansetron 4 mg tablet,disintegrating 4 mg PO DAILY insulin lispro [Humalog KwikPen Insulin] 100 unit/mL Insulin Pen 8 unit SUBCUT TIDWM duloxetine 60 mg capsule,delayed release(DR/EC) 60 mg PO DAILY multivitamin Tablet 1 tablet PO DAILY
== END 2022-10-30 10:25 | disposition home or self-care (01) ==
LOC: ANHSURGERY 07:47 → ANHOB2 16:54
PROVIDERS: PCP Internal Medicine; Visit Provider Obstetrics & Gynecology
PROC: (CPT 58573; principal; 2022-10-29 10:30)
DX: N92.0 Excessive and frequent menstruation with regular cycle (principal); N73.6 Female pelvic peritoneal adhesions (postinfective); D25.0 Submucous leiomyoma of uterus; D25.1 Intramural leiomyoma of uterus; I10 Essential (primary) hypertension; E78.5 Hyperlipidemia, unspecified; E11.9 Type 2 diabetes mellitus without complications; G47.33 Obstructive sleep apnea (adult) (pediatric); K21.9 Gastro-esophageal reflux disease without esophagitis; E05.90 Thyrotoxicosis, unspecified without thyrotoxic crisis or storm; F32.A Depression, unspecified; E66.01 Morbid (severe) obesity due to excess calories; Z68.42 Body mass index [BMI] 45.0-49.9, adult; Z79.82 Long term (current) use of aspirin; Z79.84 Long term (current) use of oral hypoglycemic drugs; Z79.51 Long term (current) use of inhaled steroids; Z79.4 Long term (current) use of insulin
CPT/HCPCS: 58573; S2900; 82948; 88307; 99199; A9270; J0690; J1100; J1650; J1885; J2250; J2405; J2704; J2710; J3010; J7030; J7120

== ENCOUNTER 2022-11-17 21:46 | Emergency (ER) | payer OTHER, SELFPAY ==
[2022-11-17 21:50] VITALS: BP 128/84; PULSE 75; RESP 15; TEMP 36.2; O2SAT 97
--- NOTE | 2022-11-18 02:09 | PC.NURSE ---
Pts name called to go to a room, no answer x 2. 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
== END 2022-11-18 03:29 | disposition left against medical advice (07) ==
LOC: ANHED 11-18 02:39
PROVIDERS: PCP Internal Medicine
DX: N93.9 Abnormal uterine and vaginal bleeding, unspecified (principal)
CPT/HCPCS: 99199

== ENCOUNTER 2023-12-01 15:27 | Outpatient (CLI) | payer OTHER, MEDICAID, SELFPAY ==
--- NOTE | ~2023-12-01 | MM_ITS ---
EXAMINATION: MM screening [facility] BI w [facility] HISTORY: Screening mammogram TECHNIQUE: Craniocaudal and mediolateral oblique 3-D tomosynthesis images were obtained and synthetic 2-D images were generated. CAD analysis was submitted and interpreted. COMPARISON: 11/16/2021, 10/17/2019 bilateral screening mammogram examinations BREAST PARENCHYMAL COMPOSITION: There are scattered areas of fibroglandular density. FINDINGS: Biopsy marker on the right; history of prior benign right breast biopsy. There is no eviden ce of suspicious mass, calcification, or architectural distortion to suggest malignancy in either moses ast. There has been no suspicious interval change. IMPRESSION: 1. No mammographic evidence of malignancy. 2. Recommend routine screening mammography in one year. BI-RADS Category 1: Negative Reviewed, dictated and finalized at location [facility]
== END 2023-12-01 15:28 | disposition home or self-care (01) ==
PROVIDERS: PCP Internal Medicine; Visit Provider Obstetrics & Gynecology
DX: Z12.31 Encounter for screening mammogram for malignant neoplasm of breast (principal)
CPT/HCPCS: 77063; 77067

== ENCOUNTER 2024-11-10 13:21 | Outpatient (CLI) | payer OTHER, MEDICAID, SELFPAY ==
--- NOTE | ~2024-11-10 | MM_ITS ---
EXAMINATION: MM diagnostic [facility] BI w [facility] HISTORY: Palpable bilateral axillary abnormalities TECHNIQUE: 3-D tomosynthesis images of the breasts were performed and synthetic 2-D images were gener ated. CAD analysis was submitted and interpreted. COMPARISON: 10/17/2019, 11/16/2021, 12/01/2023 BREAST PARENCHYMAL COMPOSITION:Not Dense. There are scattered areas of fibroglandular density. FINDINGS: Parenchymal pattern of both breasts is unchanged. There are stable prominent bilateral axil sukhwinder lymph nodes which correlate with the palpable markers. No suspicious mass or distortion seen. No suspicious microcalcifications. IMPRESSION: No mammographic evidence for malignancy. Stable prominent bilateral axillary lymph nodes which correl ate with the palpable findings. BI-RADS Category 2: Benign finding(s). Reviewed, dictated and finalized at [facility] [place] [facility]. 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 Stable prominent bilateral axillary ly mph nodes which correlate with the palpable findings. BI-RADS Category 2: Benign finding(s).
== END 2024-11-10 13:22 | disposition home or self-care (01) ==
LOC: ANHIMG 13:29
PROVIDERS: PCP Internal Medicine; Visit Provider Student in an Organized Health Care Education/Training Program
DX: N63.32 Unspecified lump in axillary tail of the left breast (principal)
CPT/HCPCS: 77062; 77066; G0279